=== PATIENT | female | born 1980 | race Two or more races ===

== ENCOUNTER 2017-03-24 06:12 | Emergency (ER) | payer MEDICAID ==
[~2017-03-24] VITALS: Ht 162.6 cm; Wt 81.6 kg
[~2017-03-24 06:12] MED LIST: PREN-96 PO
[2017-03-24 07:05] LABS: Basophils # (auto) 0 uL; Basophils % (auto) 0.6 % (0.0-2.0); Eosinophils # (auto) 0.1 uL; Hematocrit 44.7 % (36.0-46.0); Mean Corpuscular Hemoglobin 29.8 pg (28.0-32.0); Mean Corpuscular Hgb Conc. 33.5 g/dL (32.0-36.0); Mean Corpuscular Volume 88.8 fL (80.0-100.0); Mean Platelet Volume 7.7 fL (6.9-10.8); Monocytes # (auto) 0.4 uL; Monocytes % (auto) 5.9 % (0.0-12.0); Neutrophils # (auto) 4.2 uL; Neutrophils % (auto) 62.5 % (37.0-80.0); Nucleated Red Blood Cells % 0.1 %; Platelet Count (auto) 190 10^3/uL (140-450); Red Cell Distribution Width 14.2 % (11.8-14.3); White Blood Cell 6.7 10^3/uL (4.4-10.8)
[2017-03-24 07:20] LABS: Acetaminophen < 2.0 ug/mL (10-30); Salicylate < 1.7 mg/dL (2.8-20.0)
[2017-03-24 07:27] LABS: Albumin 4.2 g/dL (3.4-5.0); Alkaline Phosphatase 74 U/L (45-117); Anion Gap 8 (5-15); Aspartate Aminotransferase 12 U/L (15-37); Bilirubin, Total 0.6 mg/dL (0.2-1.0); Blood Urea Nitrogen 13 mg/dL (7-18); Calcium 8.9 mg/dL (8.5-10.1); Carbon Dioxide 25 mmol/L (21-32); Chloride 107 mmol/L (98-107); GFR African American 104 mL/min; GFR Non-African American 86 mL/min; Glucose 124 mg/dL (74-106); Potassium 3.7 mmol/L (3.5-5.1); Sodium 140 mmol/L (136-145)
[2017-03-24] MEDS ORDERED: SODIUM CHLORIDE 0.9% 1,000 ML IV ONE (07:30)
[2017-03-24 08:00] LABS: Urine RBC None Seen /hpf (0 - 4)
[2017-03-24 08:19] LABS: Urine Bilirubin Negative (Negative); Urine Blood Negative /uL (Negative); Urine Glucose Normal (Normal); Urine Ketone Negative (Negative); Urine Nitrite Negative (Negative); Urine Squamous Epithelial Cell FEW /hpf (<5); Urine Urobilinogen Normal (Negative)
[2017-03-24 08:28] LABS: Urine Color Straw (Yellow)
[2017-03-25] MEDS ORDERED: ESCI20TA51 PO ×2 (08:02→09:34)
[2017-03-25] MEDS ORDERED: ALPR0.25 PO (08:02)
[2017-03-25] MEDS ORDERED: QUET400T PO (08:02)
[2017-03-25] MEDS ORDERED: LAMO200T34 BC (08:02)
[2017-03-25] MEDS ORDERED: ALPRAZolam 0.5 MG TAB PO ONE (08:15)
[2017-03-25] MEDS ORDERED: LAMO200T34 PO (09:34)
[2017-03-25] MEDS ORDERED: QUET50TA PO (09:34)
[2017-03-25] MEDS ORDERED: lamoTRIgine 100 MG TAB PO SCH (10:00)
[2017-03-25] MEDS ORDERED: QUEtiapine FUMARATE 25 MG TAB PO SCH (10:00)
[2017-03-25] MEDS ORDERED: ALPRAZolam 0.25 MG TAB PO SCH (12:00)
[2017-03-25 20:20] VITALS: BP 120/61
== END 2017-03-25 20:24 | disposition home or self-care (01) ==
LOC: EDBD 06:12 → ER 06:13
DX: R45.851 Suicidal ideations (principal); F32.9 Major depressive disorder, single episode, unspecified; F31.9 Bipolar disorder, unspecified
CPT/HCPCS: 36415; 71020; 80053; 80307; 80320; 80329; 81001; 85025; 96360; 99285; J7030; 93005

== ENCOUNTER 2017-03-28 22:34 | Emergency (ER) | payer MEDICAID ==
[~2017-03-28] VITALS: Ht 175.3 cm; Wt 77.1 kg
[~2017-03-28 22:34] MED LIST changes: +ALPR0.25 PO; +ESCI20TA51 PO; +LAMO200T34 BC; +LAMO200T34 PO; +QUET400T PO; +QUET50TA PO
[2017-03-28 23:54] LABS: Alcohol, Urine < 3.0 mg/dL (0-5); Amphetamine Screen, Urine NEGATIVE (NEGATIVE); Barbiturate Scree,Urine NEGATIVE (NEGATIVE); Benzodiazephine Screen, Urine POSITIVE (NEGATIVE); Cannabinoid Screen, Urine POSITIVE (NEGATIVE); Cocaine Screen, Urine NEGATIVE (NEGATIVE); Opiate Scree,Urine NEGATIVE (NEGATIVE); Phencyclidine Screen, Urine NEGATIVE (NEGATIVE)
[2017-03-29 00:03] LABS: Basophils # (auto) 0 uL; Basophils % (auto) 0.7 % (0.0-2.0); Eosinophils # (auto) 0 uL; Eosinophils % (auto) 0.9 % (0.0-7.0); Hematocrit 40.7 % (36.0-46.0); Hemoglobin 13.9 g/dL (12.2-16.2); Lymphocytes # (auto) 1.2 uL; Lymphocytes % (auto) 22.6 % (10.0-50.0); Mean Corpuscular Hgb Conc. 34.2 g/dL (32.0-36.0); Mean Corpuscular Volume 87.8 fL (80.0-100.0); Monocytes # (auto) 0.9 uL; Neutrophils # (auto) 3.3 uL; Neutrophils % (auto) 59.8 % (37.0-80.0); Platelet Count (auto) 176 10^3/uL (140-450); Red Blood Cells 4.64 10^6/uL (4.0-5.20); Red Cell Distribution Width 13.5 % (11.8-14.3); White Blood Cell 5.4 10^3/uL (4.4-10.8)
[2017-03-29 00:04] LABS: Urine Bacteria NONE SEEN /hpf (None Seen); Urine Blood Negative /uL (Negative); Urine Specific Gravity 1.003 (1.001-1.035); Urine WBC <1 /hpf (0 - 5)
[2017-03-29 00:19] LABS: Albumin 3.8 g/dL (3.4-5.0); BUN/Creatinine Ratio 16.4; Calcium 8.4 mg/dL (8.5-10.1); Potassium 3.4 mmol/L (3.5-5.1)
[2017-03-29 00:28] LABS: Salicylate < 1.7 mg/dL (2.8-20.0)
[2017-03-29 00:34] LABS: Acetaminophen < 2.0 ug/mL (10-30); Bilirubin, Total 0.4 mg/dL (0.2-1.0); Total Protein 7.3 g/dL (6.4-8.2)
[2017-03-29 00:44] LABS: Urine Pregnacy Test Negative (Negative)
[2017-03-29] MEDS ORDERED: SODIUM CHLORIDE 0.9% 1,000 ML IV ONE (01:45)
[2017-03-29] MEDS ORDERED: SODIUM CHLORIDE 0.9% 2,000 ML IV ONE (01:45)
[2017-03-29 04:59] VITALS: BP 109/64
== END 2017-03-29 05:46 | disposition home or self-care (01) ==
LOC: ER 22:34 → EDBD 22:34 → ER 03-29 05:46
DX: T42.4X1A Poisoning by benzodiazepines, accidental (unintentional), initial encounter (principal); R41.82 Altered mental status, unspecified; G92 Toxic encephalopathy; F32.9 Major depressive disorder, single episode, unspecified; F12.10 Cannabis abuse, uncomplicated; F41.9 Anxiety disorder, unspecified; Z79.899 Other long term (current) drug therapy; Y92.9 Unspecified place or not applicable
CPT/HCPCS: 36415; 80053; 80307; 80329; 81001; 81025; 82962; 85025; 93005; 96360; 96361; 99285; J7030

== ENCOUNTER 2017-04-05 09:40 | Observation (INO) | payer MEDICAID ==
[~2017-04-05] VITALS: Ht 167.6 cm; Wt 84.3 kg
[2017-04-05 13:18] LABS: Basophils # (auto) 0 uL; Basophils % (auto) 0.1 % (0.0-2.0); Eosinophils # (auto) 0 uL; Eosinophils % (auto) 0.1 % (0.0-7.0); Hematocrit 37.2 % (36.0-46.0); Hemoglobin 12.4 g/dL (12.2-16.2); Lymphocytes # (auto) 1.4 uL; Lymphocytes % (auto) 21.3 % (10.0-50.0); Mean Corpuscular Hemoglobin 29.4 pg (28.0-32.0); Mean Corpuscular Hgb Conc. 33.5 g/dL (32.0-36.0); Mean Corpuscular Volume 87.7 fL (80.0-100.0); Monocytes # (auto) 0.4 uL; Monocytes % (auto) 5.6 % (0.0-12.0); Neutrophils # (auto) 4.6 uL; Neutrophils % (auto) 72.9 % (37.0-80.0); Platelet Count (auto) 226 10^3/uL (140-450); Red Blood Cells 4.24 10^6/uL (4.0-5.20); Red Cell Distribution Width 13.4 % (11.8-14.3); White Blood Cell 6.4 10^3/uL (4.4-10.8)
[2017-04-05 13:26] LABS: Acetaminophen < 2.0 ug/mL (10-30)
[2017-04-05 13:28] LABS: Alanine Aminotransferase 38 U/L (13-56); Albumin 3.1 g/dL (3.4-5.0); Alkaline Phosphatase 65 U/L (45-117); Anion Gap 9 (5-15); Aspartate Aminotransferase 26 U/L (15-37); Bilirubin, Total 0.5 mg/dL (0.2-1.0); Blood Alcohol < 3.0 mg/dL (0-5); Blood Urea Nitrogen 6 mg/dL (7-18); Calcium 8.4 mg/dL (8.5-10.1); Carbon Dioxide 25 mmol/L (21-32); Chloride 109 mmol/L (98-107); GFR African American 182 mL/min; GFR Non-African American 150 mL/min; Glucose 105 mg/dL (74-106); Potassium 3.4 mmol/L (3.5-5.1); Sodium 143 mmol/L (136-145); Total Protein 7.4 g/dL (6.4-8.2)
[2017-04-05 13:43] LABS: Salicylate < 1.7 mg/dL (2.8-20.0)
[2017-04-05 14:27] LABS: Urine Bacteria FEW /hpf (None Seen); Urine Blood Negative /uL (Negative); Urine Mucus FEW (None Seen); Urine Specific Gravity 1.007 (1.001-1.035); Urine WBC 1 /hpf (0 - 5)
[2017-04-05 14:51] LABS: Alcohol, Urine < 3.0 mg/dL (0-5); Amphetamine Screen, Urine NEGATIVE (NEGATIVE); Barbiturate Scree,Urine NEGATIVE (NEGATIVE); Benzodiazephine Screen, Urine NEGATIVE (NEGATIVE); Cannabinoid Screen, Urine X-NORESULT (NEGATIVE); Cocaine Screen, Urine NEGATIVE (NEGATIVE); Opiate Scree,Urine NEGATIVE (NEGATIVE); Phencyclidine Screen, Urine NEGATIVE (NEGATIVE)
[2017-04-05 17:00] VITALS: BP 123/78
== END 2017-04-05 18:24 | disposition home or self-care (01) | DRG 812 ==
LOC: EDBD 09:40 → ER 09:40 → OVERFLOW 14:19 → ER 18:24
PROVIDERS: ADMIT Family Medicine; ATTEND Family Medicine
DX: T43.201A Poisoning by unspecified antidepressants, accidental (unintentional), initial encounter (principal); F32.9 Major depressive disorder, single episode, unspecified; F17.210 Nicotine dependence, cigarettes, uncomplicated; F41.9 Anxiety disorder, unspecified; Y92.89 Other specified places as the place of occurrence of the external cause; Z82.49 Family history of ischemic heart disease and other diseases of the circulatory system
CPT/HCPCS: 36415; 71010; 80053; 80307; 80320; 80329; 81001; 84702; 85025; 93005; 99285; G0378

== ENCOUNTER 2024-02-29 01:59 | Emergency (ER) | payer MEDICAID, OTHER ==
[~2024-02-29] VITALS: Ht 165.1 cm; Wt 81.8 kg
[~2024-02-29 01:59] MED LIST changes: +ESCI1TAB37 PO; -ESCI20TA51 PO
[2024-02-29 02:23] VITALS: BP 97/59; TEMP 98.2
--- NOTE | 2024-02-29 02:28 | ED.PDOC ---
Altered Mental Status HPI Comments 32-year-old female who came to ER via EMS due to alcohol intoxication/altered level of consciousness. Per EMS, patient was picked up at a bar, were witnesses noted that patient has been drinking heavily for the past hour, seen laying unresponsive on the floor. Patient unresponsive to verbal stimuli. Patient reeks of alcohol. 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 Allergies: Coded Allergies: NO KNOWN ALLERGIES (Unverified , 06/10/10) Home Meds Reported Medications Quetiapine Fumerate (Seroquel) 50 Mg Tab, 2 TAB PO HS, #30 TAB 03/25/17 Lamotrigine (Lamotrigine) 200 Mg Tab, 200 MG PO DAILY, TAB 03/25/17 Escitalopram Oxalate (ESCITALOPRAM OXALATE) 20 Mg Tab, 20 MG PO DAILY, TAB 03/25/17 Alprazolam (Xanax) 0.25 Mg Tb, 0.25 MG PO BID 03/25/17 Lamotrigine (Lamotrigine) 200 Mg Tab, 200 MG BC DAILY, TAB 03/25/17 Quetiapine Fumerate (Seroquel) 400 Mg Tab, 1 TAB PO HS, #30 TAB 1 Refill 03/25/17 Escitalopram Oxalate (ESCITALOPRAM OXALATE) 20 Mg Tab, 20 MG PO DAILY, TAB 03/25/17 Vit W/ Ferrous Fumara ( One Daily) Daily Tab, 1 TAB PO DAILY, #90 TAB 3 Refills 01/04/15 Information Source: Emergency Med Personnel Mode of Arrival: EMS Severity: Unable to Care for Self, Unresponsive Timing: Minutes Duration: Since onset Prehospital treatment: None Quality: Decreased Alertness, Change in Behavior, Confusion Recent: Medication/Drug Abuse (Alcohol abuse) Past Medical History PAST MEDICAL HISTORY: Pt Confused Surgical History: Pt Confused [employer] History: Pt Confused Family History Family History: Pt Confused Social History Smoker: Pt Confused Alcohol: Heavy Drugs: Pt Confused Lives In: Pt Confused Unable to Obtain due to: Altered Mental Status, Other (Intoxicated with alcohol) Physical Exam General Appearance: Mild Distress, Normal HEENT: Normal ENT Inspection, Pharynx Normal, TMs Normal Neck: Full Range of Motion, Non-Tender, Normal, Normal Inspection Respiratory: Chest Non-Tender, Lungs Clear, No Accessory Muscle Use, No Respiratory Distress, Normal Breath Sounds Cardiovascular: No Edema, No JVD, No Murmur, No Gallop, Normal Peripheral Pulses, Regular Rate/Rhythm Breast Exam: Deferred Gastrointestinal: No Organomegaly, Non Tender, No Pulsatile Mass, Normal Bowel Sounds, Soft Genitalia: Deferred Pelvic: Deferred Rectal: Deferred Extremities: No calf tenderness, Normal capillary refill, Normal inspection, Normal range of motion, Non-tender, No pedal edema Musculoskeletal : Apperance: Normal Neurologic: Alert, post doc fellowship II-XII nml as Tested, No Motor Deficits, Normal Affect, Normal Mood, No Sensory Deficits Cerebellar Function: NOT DONE Reflexes: NOT DONE Skin: Dry, Normal Color, Warm Lymphatic: No Adenopathy Was a procedure done? Was a procedure done?: No Differential Diagnosis (ALOC) Differential Diagnosis: Encephalopathy, Drug Overdose, ETOH Intoxication X-Ray, Labs, Meds, VS Vital Signs Date Time Temp Pulse Resp B/P (MAP) Pulse Ox O2 Delivery O2 Flow Rate FiO2 02/29/24 02:35 79 19 97 Room Air* 0 21 02/29/24 02:23 98.2 79 19 97/59 (72) 97 98.2 02/29/24 02:05 98.6 94 18 158/98 (118) 86 Lab Test 02/29/24 02:37 Range/Units White Blood Count 9.0 4.4-10.8 10^3/uL Red Blood Count 4.71 4.0-5.20 10^6/uL Hemoglobin 13.9 12.2-16.2 g/dL Hematocrit 42.2 36.0-46.0 % Mean Corpuscular Volume 89.5 80.0-100.0 fL Mean Corpuscular Hemoglobin 29.6 28.0-32.0 pg Mean Corpuscular Hemoglobin Concent 33.0 32.0-36.0 g/dL Red Cell Distribution Width 13.8 11.8-14.3 % Platelet Count 232 140-450 10^3/uL Mean Platelet Volume 7.8 6.9-10.8 fL Neutrophils (%) (Auto) 72.7 37.0-80.0 % Lymphocytes (%) (Auto) 20.0 10.0-50.0 % Monocytes (%) (Auto) 4.8 0.0-12.0 % Eosinophils (%) (Auto) 0.9 0.0-7.0 % Basophils (%) (Auto) 1.6 0.0-2.0 % Neutrophils # (Auto) 6.5 1.6-8.6 10 ^3/uL Lymphocytes # (Auto) 1.8 0.4-5.4 10 ^3/uL Monocytes # (Auto) 0.4 0-1.3 10 ^3/uL Eosinophils # (Auto) 0.1 0-0.8 10 ^3/uL Basophils # (Auto) 0.1 0-0.2 10 ^3/uL Nucleated Red Blood Cells 0.0 % Sodium Level 138 136-145 mmol/L Potassium Level 3.0 L 3.5-5.1 mmol/L Chloride Level 105 98-107 mmol/L Carbon Dioxide Level 21 20-31 mmol/L Anion Gap 12 5-15 Blood Urea Nitrogen 8 L 9-23 mg/dL Creatinine 0.82 0.550-1.02 mg/dL Glomerular Filtration Rate Calc 99 >90 mL/min BUN/Creatinine Ratio 9.8 L 10.0-20.0 Serum Glucose 132 H 74-106 mg/dL Calcium Level 9.2 8.7-10.4 mg/dL Magnesium Level 2.2 1.6-2.6 mg/dL Total Bilirubin 0.7 0.2-1.0 mg/dL Aspartate Amino Transferase (AST) 10 L 13-40 U/L Alanine Aminotransferase (ALT) 19 7-40 U/L Alkaline Phosphatase 63 46-116 U/L Total Protein 6.7 5.7-8.2 g/dL Albumin 4.4 3.2-4.8 g/dL Plasma/Serum Blood Alcohol 214.5 H <10 mg/dL Current Medications Medications (Trade) Dose Ordered Sig/Mary Alice Route Start Time Stop Time Status Last Admin Sodium Chloride 500 ml @ 500 mls/hr Q1H ONCE IV 02/29/24 04:00 02/29/24 04:59 02/29/24 04:13 Potassium Chloride 100 ml @ 50 mls/hr ONCE ONCE IV 02/29/24 04:00 02/29/24 05:59 02/29/24 04:13 Time of 1ST Reevaluation: 02:26 Reevaluation 1ST: Unchanged Time of 2ND Reevaluation: 04:36 (Arousable and more alert but somewhat lethargic, will continue to observe) Reevaluation 2ND: Improved Patient Education/Counseling: Pt Unresponsive (Unresponsive to verbal stimuli) Family Education/Counseling: No Family Present Departure 1 Departure Time of Disposition: 06:00 Impression: Primary Impression: Alcohol intoxication Disposition: HOME / SELF CARE / HOMELESS Condition: Stable Discharged With: Self Critical Care Note Critical Care Time?: No Stability Stability form required: No Heart Score Heart Score: Heart Score Response (Comments) Value History N/A 0 EKG N/A 0 Age N/A 0 Risk Factors N/A 0 Troponin N/A 0 Total 0 I personally scribed for CYRUS JENSEN MD ([email or web address]) on 02/29/24 at 02:28. Electronically submitted by Hector Armenta ([email or web address]). CYRUS JENSEN MD Feb 29, 2024 02:28
[2024-02-29 02:35] VITALS: PULSE 79; RESP 19; O2SAT 97
[2024-02-29 02:51] LABS: Basophils # (auto) 0.1 10 ^3/uL (0-0.2); Basophils % (auto) 1.6 % (0.0-2.0); Eosinophils # (auto) 0.1 10 ^3/uL (0-0.8); Eosinophils % (auto) 0.9 % (0.0-7.0); Hematocrit 42.2 % (36.0-46.0); Hemoglobin 13.9 g/dL (12.2-16.2); Lymphocytes # (auto) 1.8 10 ^3/uL (0.4-5.4); Mean Corpuscular Hemoglobin 29.6 pg (28.0-32.0); Mean Corpuscular Volume 89.5 fL (80.0-100.0); Monocytes # (auto) 0.4 10 ^3/uL (0-1.3); Monocytes % (auto) 4.8 % (0.0-12.0); Neutrophils # (auto) 6.5 10 ^3/uL (1.6-8.6); Neutrophils % (auto) 72.7 % (37.0-80.0); Platelet Count (auto) 232 10^3/uL (140-450); Red Blood Cells 4.71 10^6/uL (4.0-5.20); Red Cell Distribution Width 13.8 % (11.8-14.3)
[2024-02-29 03:23] LABS: Alanine Aminotransferase 19 U/L (7-40); Albumin 4.4 g/dL (3.2-4.8); Alkaline Phosphatase 63 U/L (46-116); Anion Gap 12 (5-15); Aspartate Aminotransferase 10 U/L (13-40); BUN/Creatinine Ratio 9.8 (10.0-20.0); Bilirubin, Total 0.7 mg/dL (0.2-1.0); Blood Alcohol 214.5 mg/dL (<10); Blood Urea Nitrogen 8 mg/dL (9-23); Calcium 9.2 mg/dL (8.7-10.4); Carbon Dioxide 21 mmol/L (20-31); Chloride 105 mmol/L (98-107); Glucose 132 mg/dL (74-106); Magnesium 2.2 mg/dL (1.6-2.6); Sodium 138 mmol/L (136-145); Total Protein 6.7 g/dL (5.7-8.2)
[2024-02-29] MEDS: SODIUM CHLORIDE 0.9% 500 ML IV ONE (04:13)
[2024-02-29] MEDS: POTASSIUM CHL 20MEQ/100ML 100 ML IV ONE (04:13)
== END 2024-02-29 06:09 | disposition home or self-care (01) ==
LOC: EDUNIT# 01:59 → ER 01:59 → EDBD 01:59 → ER 06:09
DX: F10.129 Alcohol abuse with intoxication, unspecified (principal); Z79.899 Other long term (current) drug therapy; Y90.0 Blood alcohol level of less than 20 mg/100 ml
CPT/HCPCS: 36415; 80053; 80320; 83735; 85025; 96360; 96361; 99284; J3480; J7040